=== PATIENT | male | born 1960 | race Caucasian/White ===

== ENCOUNTER 2024-02-12 07:28 | Outpatient (CLI) | payer OTHER, SELFPAY ==
--- NOTE | ~2024-02-12 | PE_ITS ---
EXAMINATION: PET_PETPSMAST_PT DATE: 02/12/2024 09:44 INDICATION: Prostate cancer. Elevated prostate-specific antigen. TECHNIQUE: 4.842 mCi of Ga-68 gozetotide was administered intravenously. Low dose computed tomography (CT) images were acquired from the base of the brain to the proximal thighs for attenuation correcti on and anatomic localization. Automated exposure control was employed. Dose-length product (DLP) was 1455 mGy-cm. Positron emission tomography (PET) images were acquired in the same distribution. COMPARISON: None FINDINGS: Head/neck: There are no pathologically enlarged lymph nodes. Chest: The lungs demonstrate mild atelectasis. No pleural effusion. The heart size is normal. No anuradha cardial effusion. Abdomen/pelvis/proximal thighs: The liver, gallbladder, spleen, pancreas, adrenal glands, and kidneys are normal. There is an umbilical hernia containing fat. The prostate is mildly enlarged. There are discontinuous areas of increased activity involving the right peripheral zone and the left peripheral zone with maximum SUV of 21.5. There are bilateral inguinal hernias containing fat. There is diffuse bladder wall thickening, likely secondary to chronic outlet obstruction. There are no dilated loops of bowel. The appendix is normal. There is no free intraperitoneal fluid. There are small right and m oderate-sized left hydroceles. There are no pathologically enlarged lymph nodes. There is a 6 x 5 mm left internal iliac lymph node with maximum SUV of 5.6. There is a benign bone island in right ilium. IMPRESSION: 1. Mildly enlarged prostate with increased activity, consistent with primary malignancy. 2. Normal-sized left internal iliac lymph node with increased activity, consistent with metastatic di sease. Reviewed, dictated and finalized at location A. [place] LAYER IMPRESSION: 1. Mildly enlarged prostate with increased activity, consistent with primary ma lignancy. 2. Normal-sized left internal iliac lymph node with increased activity, consist ent with metastatic disease.
== END 2024-02-12 07:29 | disposition home or self-care (01) ==
PROVIDERS: Visit Provider Urology
DX: R97.20 Elevated prostate specific antigen [PSA] (principal)
CPT/HCPCS: 78815; A9596